=== PATIENT | male | born 1960 | race American Indian/Alaskan Native ===

== ENCOUNTER 2017-02-02 11:30 | Emergency (ER) | payer OTHER ==
[2017-02-02 12:49] VITALS: BP 151/95
--- NOTE | 2017-02-03 10:00 | Vascular Lab Report ---
LOWER EXTREMITY VENOUS DUPLEX: REASON FOR EXAM: Bilateral leg pain. COMMENTS ON THE RIGHT: Nonocclusive chronic deep venous thrombosis noted in the right popliteal vein. The remaining veins visualized are freely compressible without evidence of internal echogenicity. Spontaneous and phasic flow is present proximally. COMMENTS ON THE LEFT: All veins visualized are freely compressible without evidence of internal echogenicity. Flow is spontaneous and phasic throughout. IMPRESSION: Chronic deep venous thrombosis in the right lower extremity
== END 2017-02-02 22:25 | disposition left against medical advice (07) ==
LOC: ED 11:30
DX: M79.604 Pain in right leg (principal); M79.605 Pain in left leg; Z53.21 Procedure and treatment not carried out due to patient leaving prior to being seen by health care provider
CPT/HCPCS: 93970

== ENCOUNTER 2017-03-11 09:36 | Outpatient (CLI) | payer MEDICAID ==
[2017-03-11] MEDS ORDERED: XYLOCAINE TOPICAL 4% TP ONE (11:00)
== END 2017-03-11 09:37 | disposition home or self-care (01) ==
LOC: WOUND 09:36
PROVIDERS: ATTEND Nurse Practitioner
DX: I87.311 Chronic venous hypertension (idiopathic) with ulcer of right lower extremity (principal); L97.811 Non-pressure chronic ulcer of other part of right lower leg limited to breakdown of skin; F41.9 Anxiety disorder, unspecified; F17.200 Nicotine dependence, unspecified, uncomplicated
CPT/HCPCS: 11042; 11045; 87075; 87076; 87116; 87186; G0463

== ENCOUNTER 2017-03-15 13:00 | Outpatient (CLI) | payer MEDICAID | END 2017-03-15 13:01 | disposition home or self-care (01) | LOC: WOUND 13:00 | PROVIDERS: ATTEND Internal Medicine | DX: I87.311 Chronic venous hypertension (idiopathic) with ulcer of right lower extremity (principal); I87.312 Chronic venous hypertension (idiopathic) with ulcer of left lower extremity; L97.811 Non-pressure chronic ulcer of other part of right lower leg limited to breakdown of skin; L97.821 Non-pressure chronic ulcer of other part of left lower leg limited to breakdown of skin; I87.2 Venous insufficiency (chronic) (peripheral); F41.9 Anxiety disorder, unspecified; F17.200 Nicotine dependence, unspecified, uncomplicated; Z86.718 Personal history of other venous thrombosis and embolism | CPT/HCPCS: 29580; G0463; 99212 ==

== ENCOUNTER 2017-03-18 09:13 | Outpatient (CLI) | payer MEDICAID ==
[2017-03-18] MEDS ORDERED: XYLOCAINE TOPICAL 4% TP ONE ×2 (09:28→09:37)
[2017-03-18] MEDS ORDERED: AD OINTMENT TP ONE (10:02)
[2017-03-20] MEDS ORDERED: AD OINTMENT TP SCH (10:00)
== END 2017-03-18 09:14 | disposition home or self-care (01) ==
LOC: WOUND 09:13
PROVIDERS: ATTEND Nurse Practitioner
DX: I87.311 Chronic venous hypertension (idiopathic) with ulcer of right lower extremity (principal); L97.811 Non-pressure chronic ulcer of other part of right lower leg limited to breakdown of skin; B95.1 Streptococcus, group B, as the cause of diseases classified elsewhere; F41.9 Anxiety disorder, unspecified; F17.200 Nicotine dependence, unspecified, uncomplicated
CPT/HCPCS: A6250

== ENCOUNTER 2017-03-22 10:53 | Outpatient (CLI) | payer MEDICAID | END 2017-03-22 10:54 | disposition home or self-care (01) | LOC: WOUND 10:53 | PROVIDERS: ATTEND Internal Medicine | DX: I87.311 Chronic venous hypertension (idiopathic) with ulcer of right lower extremity (principal); L97.811 Non-pressure chronic ulcer of other part of right lower leg limited to breakdown of skin; B95.1 Streptococcus, group B, as the cause of diseases classified elsewhere; F41.8 Other specified anxiety disorders; F17.200 Nicotine dependence, unspecified, uncomplicated | CPT/HCPCS: 29580 ==

== ENCOUNTER 2017-03-25 09:24 | Outpatient (CLI) | payer MEDICAID ==
[2017-03-25] MEDS ORDERED: XYLOCAINE TOPICAL 4% TP ONE ×3 (09:50→12:18)
== END 2017-03-25 09:25 | disposition home or self-care (01) ==
LOC: WOUND 09:24
PROVIDERS: ATTEND Nurse Practitioner
DX: I87.311 Chronic venous hypertension (idiopathic) with ulcer of right lower extremity (principal); L97.811 Non-pressure chronic ulcer of other part of right lower leg limited to breakdown of skin; F41.9 Anxiety disorder, unspecified; F17.200 Nicotine dependence, unspecified, uncomplicated

== ENCOUNTER 2017-03-26 10:27 | Outpatient (CLI) | payer MEDICAID | END 2017-03-26 10:28 | disposition home or self-care (01) | LOC: WOUND 10:27 | PROVIDERS: ATTEND Podiatrist | DX: I87.313 Chronic venous hypertension (idiopathic) with ulcer of bilateral lower extremity (principal); L97.821 Non-pressure chronic ulcer of other part of left lower leg limited to breakdown of skin; L97.811 Non-pressure chronic ulcer of other part of right lower leg limited to breakdown of skin; B35.1 Tinea unguium; L84 Corns and callosities; G62.9 Polyneuropathy, unspecified; F41.9 Anxiety disorder, unspecified; F17.200 Nicotine dependence, unspecified, uncomplicated; M79.672 Pain in left foot | CPT/HCPCS: 11056 ==

== ENCOUNTER 2017-03-29 13:53 | Outpatient (CLI) | payer MEDICAID ==
[2017-03-29] MEDS ORDERED: AD OINTMENT TP ONE (14:17)
[2017-03-29] MEDS ORDERED: AD OINTMENT TP PRN (16:49)
== END 2017-03-29 13:54 | disposition home or self-care (01) ==
LOC: WOUND 13:53
PROVIDERS: ATTEND Internal Medicine
DX: I87.311 Chronic venous hypertension (idiopathic) with ulcer of right lower extremity (principal); L97.811 Non-pressure chronic ulcer of other part of right lower leg limited to breakdown of skin; B35.1 Tinea unguium; L84 Corns and callosities; G62.9 Polyneuropathy, unspecified; F41.9 Anxiety disorder, unspecified; F17.200 Nicotine dependence, unspecified, uncomplicated
CPT/HCPCS: 29580; A6250

== ENCOUNTER 2017-04-01 10:11 | Outpatient (CLI) | payer MEDICAID ==
[2017-04-01] MEDS ORDERED: XYLOCAINE TOPICAL 4% TP ONE (10:55)
== END 2017-04-01 10:12 | disposition home or self-care (01) ==
LOC: WOUND 10:11
PROVIDERS: ATTEND Surgery
DX: I87.311 Chronic venous hypertension (idiopathic) with ulcer of right lower extremity (principal); L97.811 Non-pressure chronic ulcer of other part of right lower leg limited to breakdown of skin; I87.2 Venous insufficiency (chronic) (peripheral); I10 Essential (primary) hypertension; B35.1 Tinea unguium; L84 Corns and callosities; G62.9 Polyneuropathy, unspecified; F41.9 Anxiety disorder, unspecified

== ENCOUNTER 2017-04-05 13:17 | Outpatient (CLI) | payer MEDICAID | END 2017-04-05 13:18 | disposition home or self-care (01) | LOC: WOUND 13:17 | PROVIDERS: ATTEND Internal Medicine | DX: I87.311 Chronic venous hypertension (idiopathic) with ulcer of right lower extremity (principal); L97.811 Non-pressure chronic ulcer of other part of right lower leg limited to breakdown of skin; B35.1 Tinea unguium; L84 Corns and callosities; G62.9 Polyneuropathy, unspecified; F41.9 Anxiety disorder, unspecified; F17.200 Nicotine dependence, unspecified, uncomplicated | CPT/HCPCS: 29580; G0463; 99213 ==

== ENCOUNTER 2017-04-08 09:36 | Outpatient (CLI) | payer MEDICAID ==
[2017-04-08] MEDS ORDERED: AD OINTMENT TP ONE (10:04)
[2017-04-08] MEDS ORDERED: XYLOCAINE TOPICAL 4% TP ONE (11:00)
== END 2017-04-08 09:37 | disposition home or self-care (01) ==
LOC: WOUND 09:36
PROVIDERS: ATTEND Nurse Practitioner
DX: I87.313 Chronic venous hypertension (idiopathic) with ulcer of bilateral lower extremity (principal); L97.821 Non-pressure chronic ulcer of other part of left lower leg limited to breakdown of skin; L97.811 Non-pressure chronic ulcer of other part of right lower leg limited to breakdown of skin; B35.1 Tinea unguium; L84 Corns and callosities; G62.9 Polyneuropathy, unspecified; F41.9 Anxiety disorder, unspecified; F32.9 Major depressive disorder, single episode, unspecified; F17.200 Nicotine dependence, unspecified, uncomplicated
CPT/HCPCS: A6250

== ENCOUNTER 2017-04-12 10:13 | Outpatient (CLI) | payer MEDICAID | END 2017-04-12 10:14 | disposition home or self-care (01) | LOC: WOUND 10:13 | PROVIDERS: ATTEND Internal Medicine | DX: I87.2 Venous insufficiency (chronic) (peripheral) (principal); L97.811 Non-pressure chronic ulcer of other part of right lower leg limited to breakdown of skin; F41.9 Anxiety disorder, unspecified; F17.200 Nicotine dependence, unspecified, uncomplicated | CPT/HCPCS: 99213; G0463 ==

== ENCOUNTER 2017-04-19 13:34 | Outpatient (CLI) | payer MEDICAID | END 2017-04-19 13:35 | disposition home or self-care (01) | LOC: WOUND 13:34 | PROVIDERS: ATTEND Internal Medicine | DX: I87.311 Chronic venous hypertension (idiopathic) with ulcer of right lower extremity (principal); L97.811 Non-pressure chronic ulcer of other part of right lower leg limited to breakdown of skin; I87.2 Venous insufficiency (chronic) (peripheral); B35.1 Tinea unguium; L84 Corns and callosities; G62.9 Polyneuropathy, unspecified; F41.9 Anxiety disorder, unspecified; F17.200 Nicotine dependence, unspecified, uncomplicated | CPT/HCPCS: 29580; G0463 ==

== ENCOUNTER 2017-04-22 13:59 | Outpatient (CLI) | payer MEDICAID ==
[2017-04-22] MEDS ORDERED: XYLOCAINE TOPICAL 4% TP ONE ×2 (14:02→14:24)
== END 2017-04-22 14:00 | disposition home or self-care (01) ==
LOC: WOUND 13:59
PROVIDERS: ATTEND Nurse Practitioner
DX: I87.311 Chronic venous hypertension (idiopathic) with ulcer of right lower extremity (principal); L97.811 Non-pressure chronic ulcer of other part of right lower leg limited to breakdown of skin; L84 Corns and callosities; G62.9 Polyneuropathy, unspecified; F41.9 Anxiety disorder, unspecified; F17.200 Nicotine dependence, unspecified, uncomplicated

== ENCOUNTER 2017-04-26 13:01 | Outpatient (CLI) | payer MEDICAID | END 2017-04-26 13:02 | disposition home or self-care (01) | LOC: WOUND 13:01 | PROVIDERS: ATTEND Internal Medicine | DX: I87.311 Chronic venous hypertension (idiopathic) with ulcer of right lower extremity (principal); L97.811 Non-pressure chronic ulcer of other part of right lower leg limited to breakdown of skin; G62.9 Polyneuropathy, unspecified; L84 Corns and callosities; F41.9 Anxiety disorder, unspecified; F17.200 Nicotine dependence, unspecified, uncomplicated | CPT/HCPCS: 99213; G0463 ==

== ENCOUNTER 2017-05-06 10:43 | Outpatient (CLI) | payer MEDICAID | END 2017-05-06 10:44 | disposition home or self-care (01) | LOC: WOUND 10:43 | PROVIDERS: ATTEND Nurse Practitioner | DX: I87.311 Chronic venous hypertension (idiopathic) with ulcer of right lower extremity (principal); L97.811 Non-pressure chronic ulcer of other part of right lower leg limited to breakdown of skin; L84 Corns and callosities; G62.9 Polyneuropathy, unspecified; F41.9 Anxiety disorder, unspecified; F17.200 Nicotine dependence, unspecified, uncomplicated | CPT/HCPCS: 99213; G0463 ==